=== PATIENT | female | born 1980 | race African-American/Black ===

== ENCOUNTER 2024-03-05 15:42 | Emergency (ER) | payer MEDICAID ==
[~2024-03-05] VITALS: Ht 157.5 cm; Wt 100.0 kg
[2024-03-05 16:09] VITALS: O2SAT 96
[2024-03-05 16:12] LABS: BASOPHILS % 0.6 % (0.0-2.0); DIFFERENTIAL COMMENT 0; EOSINOPHILS % 2.4 % (0.0-5.0); HEMATOCRIT. 25.7 % (36.0-48.0); LYMPHOCYTES % 27.6 % (20.0-50.0); MEAN CORPUSCULAR HEMOGLOBIN 22.3 pg (28.0-32.0); MEAN CORPUSCULAR HGB CONC 31.2 g/dL (31.0-37.0); MEAN CORPUSCULAR VOLUME 71.7 fL (81.0-99.0); MONOCYTES % 8.4 % (2.0-8.0); PLATELET 247 x1000/uL (130-400); RED BLOOD CELL COUNT 3.59 mill/uL (4.2-5.4); RED CELL DISTRIBUTION WIDTH 20.6 % (11.6-14.6); WHITE BLOOD COUNT 6.4 x1000/uL (4.5-11.0)
[2024-03-05 16:15] LABS: CHLORIDE 105 mEq/L (98-107); POTASSIUM 3.4 mEq/L (3.5-5.1); SODIUM 136 mEq/L (136-145)
[2024-03-05 16:16] LABS: CARBON DIOXIDE 27 mEq/L (21-32)
[2024-03-05 16:17] LABS: CALCIUM 8.8 mg/dL (8.7-10.4)
[2024-03-05 16:21] LABS: CREATININE 2.1 mg/dL (0.6-1.0)
[2024-03-05 16:22] LABS: GLUCOSE 110 mg/dL (70-105); TROPONIN I HIGH SENSITIVITY 7 ng/L (3.0-34); UREA NITROGEN BLOOD 17 mg/dL (9-23)
[2024-03-05 17:12] LABS: CLARITY URINE CLOUDY (CLEAR); COLOR URINE DARK YELLOW (YELLOW); GLUCOSE URINE NEGATIVE (NEGATIVE); KETONES URINE TRACE (NEGATIVE); LEUKOCYTE ESTERASE URINE NEGATIVE (NEGATIVE); NITRITE URINE NEGATIVE (NEGATIVE); OCCULT BLOOD URINE NEGATIVE (NEGATIVE); PROTEIN URINE 1+ (NEGATIVE); SPECIFIC GRAVITY URINE 1.022 (1.005-1.030)
[2024-03-05] MEDS: SODIUM CHLORIDE 0.9% 1,000 ML IV ONE (17:30)
[2024-03-05 17:41] LABS: BACTERIA URINE NONE SEEN; RBC URINE NONE SEEN /hpf (0-2); SQUAMOUS EPITHELIAL CELL URINE FEW /lpf (RARE/1+); WBC URINE 0-2 /hpf (0-2)
[2024-03-05 19:13] LABS: ALANINE AMINOTRANSFERASE 14 IU/L (10-49); ALBUMIN 4.2 g/dL (3.2-4.8); ASPARTATE AMINOTRANSFERASE 21 IU/L (<34); BILIRUBIN TOTAL 0.2 mg/dL (0.1-1.0); PROTEIN TOTAL 7.6 g/dL (6.0-8.3)
[2024-03-05 19:14] LABS: BILIRUBIN DIRECT < 0.1 mg/dL (<=3.0)
[2024-03-05 20:01] VITALS: BP 178/100; PULSE 88; RESP 16; TEMP 36.89184; O2SAT 100
== END 2024-03-05 20:04 | disposition home or self-care (01) ==
LOC: ER 15:42
DX: E86.0 Dehydration (principal); N17.9 Acute kidney failure, unspecified; R79.89 Other specified abnormal findings of blood chemistry; D64.9 Anemia, unspecified; I10 Essential (primary) hypertension
CPT/HCPCS: 80076; 80048; 81003; 81025; 85660; 85025; 84484; 36415; 93005; 96360; 99284; J7030; Z7610

== ENCOUNTER 2024-03-06 16:52 | Emergency (ER) | payer MEDICAID ==
[~2024-03-06] VITALS: Ht 170.2 cm; Wt 91.0 kg
[2024-03-06 16:58] VITALS: O2SAT 100
[2024-03-06 18:04] LABS: BASOPHILS % 0.7 % (0.0-2.0); DIFFERENTIAL COMMENT 0; EOSINOPHILS % 2.3 % (0.0-5.0); HEMATOCRIT. 26.3 % (36.0-48.0); HEMOGLOBIN. 8.1 g/dL (12.0-16.0); LYMPHOCYTES % 34.3 % (20.0-50.0); MEAN CORPUSCULAR HEMOGLOBIN 22.2 pg (28.0-32.0); MEAN CORPUSCULAR HGB CONC 30.6 g/dL (31.0-37.0); MEAN CORPUSCULAR VOLUME 72.5 fL (81.0-99.0); MEAN PLATELET VOLUME 9.4 fl (7.4-10.4); MONOCYTES % 6.8 % (2.0-8.0); NEUTROPHILS % 55.9 % (40.0-76.0); PLATELET 216 x1000/uL (130-400); RED BLOOD CELL COUNT 3.63 mill/uL (4.2-5.4); RED CELL DISTRIBUTION WIDTH 20.3 % (11.6-14.6); WHITE BLOOD COUNT 6.3 x1000/uL (4.5-11.0)
[2024-03-06 18:10] LABS: POTASSIUM 3.5 mEq/L (3.5-5.1)
[2024-03-06 18:11] LABS: CALCIUM 9.1 mg/dL (8.7-10.4)
[2024-03-06 18:16] LABS: CREATININE 1.7 mg/dL (0.6-1.0)
[2024-03-06 21:15] LABS: CREATINE KINASE 376 IU/L (34-145)
[2024-03-06 22:03] VITALS: BP 144/81; PULSE 88; RESP 18; TEMP 36.94740; O2SAT 100
== END 2024-03-06 22:05 | disposition home or self-care (01) ==
LOC: ER 16:52
DX: N28.9 Disorder of kidney and ureter, unspecified (principal); D64.9 Anemia, unspecified; I10 Essential (primary) hypertension
CPT/HCPCS: 36415; 80048; 82550; 85025; 99283

== ENCOUNTER 2024-12-12 20:52 | Emergency (ER) | payer MEDICAID ==
[~2024-12-12] VITALS: Ht 157.5 cm; Wt 105.0 kg
[2024-12-12 21:11] VITALS: O2SAT 100
[2024-12-12 21:31] VITALS: BP 154/96; PULSE 99; RESP 18; TEMP 36.8; O2SAT 99
[2024-12-12] MEDS ORDERED: LIDOCAINE 5% PATCH TOP SCH (21:45)
[2024-12-12] MEDS: KETOROLAC 15MG/ML VIAL IM ONE (21:55)
[2024-12-12] MEDS: LIDOCAINE 5% PATCH TOP SCH (22:04)
[2024-12-12] MEDS ORDERED: NAPR-1176 MT (23:45)
[2024-12-12] MEDS ORDERED: LIDO-53 TP (23:45)
== END 2024-12-13 01:12 | disposition home or self-care (01) ==
LOC: ER 20:52
DX: M25.561 Pain in right knee (principal); I10 Essential (primary) hypertension; Z79.1 Long term (current) use of non-steroidal anti-inflammatories (NSAID); Z79.899 Other long term (current) drug therapy
CPT/HCPCS: 93971; 73562; 96372; 99285; J1885; Z7610